=== PATIENT | male | born 1990 | race Caucasian/White ===

== ENCOUNTER 2019-09-10 11:36 | Emergency (ER) | payer SELFPAY ==
[~2019-09-10] VITALS: Ht 167.6 cm; Wt 80.7 kg
[2019-09-10 11:38] VITALS: BP 136/88
[2019-09-10] MEDS ORDERED: OLANZAPINE 5 MG TABLET PO ONE (12:00)
[2019-09-10] MEDS ORDERED: ACETAMINOPHEN 325 MG TABLET PO ONE (12:00)
--- NOTE | 2019-09-10 12:18 | NUR ---
Patient a/ox4, breathing even and unlabored, no sob noted, patient refused blood drawn, refused medications, and any other treatment Dr. German is providing him. Explained risks and benefits, still refused. Patient stated he doesn't want any needles or any medication. Dr. German aware. Patient is ambulatory with steady gait. Refuses offer of half-way placement, refuses list of shelters, offered tap card and socks/shoes but patient refused. Patient is verbally discharged by Dr. german.
== END 2019-09-10 12:30 | disposition home or self-care (01) ==
LOC: ER 11:40
DX: M25.561 Pain in right knee (principal); M25.562 Pain in left knee; Z88.8 Allergy status to other drugs, medicaments and biological substances